=== PATIENT | female | born 1975 | race Caucasian/White ===

== ENCOUNTER 2019-12-24 12:28 | Observation (INO) ==
[2019-12-24 14:16] LABS: Alanine Aminotransferase 26 U/L (12-78); Aspartate Aminotransferase 20 U/L (15-37)
[2019-12-24 14:32] LABS: Basophils # (auto) 0.02 K/uL (0-0.2); Basophils % (auto) 0.3 %; Eosinophils # (auto) 0.03 K/uL (0-0.5); Eosinophils % (auto) 0.4 %; Hematocrit (blood only) 32.2 % (37-47); Immature Granulocytes # (auto) 0.02 K/uL (0.00-0.02); Immature Granulocytes % (auto) 0.3 %; Lymphocytes % (auto) 14.5 %; Mean Corpuscular Hemoglobin 25.8 pg (25-34); Mean Platelet Volume 10.3 fL (7.4-10.4); Monocytes # (auto) 0.42 K/uL (0.11-0.59); Monocytes % (auto) 5.5 %; Neutrophils # (auto) 6.02 K/uL (1.4-6.5); Platelet Count 329 K/uL (130-400); RDW Standard Deviation 45.7 fL (36.4-46.3); Red Blood Count 3.88 M/uL (4.2-5.4); White Blood Count 7.61 K/uL (4.8-10.8)
[2019-12-24 14:37] LABS: Mean Corpuscular Hgb Conc 31.1 g/dL (32-36)
[2019-12-24 14:48] LABS: Protein Creatinine Ratio Urine 0.2 (0-0.2); Total Protein Urine Random 47.5 mg/dl (0-11.9)
[2019-12-24] MEDS ORDERED: NIFEdipine 10 MG CAP PO STA (15:11)
[2019-12-24 15:20] LABS: Creatinine Clr Calc Pharmacy 151.6 ml/min; Est GFR (African American) 123.6; Est GFR (Non-African American) 106.7
--- NOTE | 2019-12-24 16:22 | History & Physical Report ---
Date of Service December 24, 2019 Assessment & Plan (1) Pre-eclampsia during in third trimester, antepartum: IUP at 34 6/7 weeks with preclampsia with severe features although all PIH labs are WNL except for creatinine/protein ratio is 0.2. will give 10mg Nifedipine now because BP's are persistently high. will also work on transferring to [facility] because of late premature gestation. breech presentation on ultrasound. Present on Admission?: Yes History of Present Illness Primary Care Provider: NO PCP Patient is a 44 yo white female EDC [birth year] who presents at 34 6/7 weeks for a routine OB visit. BP was 150/102 and repeat BP wsa 140/90 with 1+ proteinuria. She has no PIH symptoms except for increased swelling in her legs for the past 4 days. On arrival in L&D , BP's have continued to be elevated with a range of 185-166/95-102. 1+ proteinuria as well. She has not been seen in the office since 24 weeks because of concerns about chelsea COVID-19 and because her other pregnancies had been uncomplicated. GBS status is unknown. Blood type is O positive. echo was WNL. anatomy scan was also complete & normal. She has no history of hypertension or gestational diabetes with her other pregnancies. 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 Required: No Beliefs That Will Affect Care: None marital status: Single marital status details: REBECA Gray (45) [phone] Current Living Situation: Spouse Current Living Situation Comment: Lives at home with and children Other Information That Helps Us Care for You: No Smoking Status: Never smoker Do You Dip or Chew Tobacco: No ; Second Hand Exposure: No ; Tobacco Cessation Education Requested by Patient: No Hx Alcohol Use: No Hx Substance Use: No Review of Systems All systems reviewed & are unremarkable except as noted in HPI & below Physical Exam Constitutional: WD/WN, vitals as above Respiratory: normal respiratory effort, lungs clear to auscultation Cardiovascular: RRR, no murmur, no edema Gastrointestinal (Abdomen): normal bowel sounds, soft, nontender, no hepatosplenomegaly Percussion/Palpation: abdomen nontender (no epigastric or RUQ tenderness) Psychiatric: A+Ox3, euthymic affect Genitourinary: OB Exam Abdomen: + breech (double footling) Manual OB Exam: + cervical dilation fingertip, + cervical effacement 50% and + station high OB Exam Monitor Tracing: + external FHT monitor used, + external uterine monitor used, + category I and + normal FHT variability Results & Data ([facility]) Vital Signs (Past 12 Hours) Vital Signs Temp Pulse Resp BP 12/24/19 15:55 90 152/75 H 12/24/19 15:40 86 166/91 H 12/24/19 15:25 80 166/89 H 12/24/19 15:10 73 181/98 H 12/24/19 14:16 78 185/97 H 12/24/19 13:52 83 187/95 H 12/24/19 13:49 87 195/117 H 12/24/19 13:36 78 163/99 H 12/24/19 13:24 98.4 F 79 20 174/102 H 12/24/19 13:08 85 172/86 H 12/24/19 13:00 81 186/108 H 12/24/19 12:55 77 185/107 H Coding Level of Care Code 37653 Office/Outpt Visit, New Diagnoses Pre-eclampsia during in third trimester, antepartum O14.93
--- NOTE | 2019-12-24 17:31 | Obstetrical Progress Note ---
Date of Service December 24, 2019 Assessment & Plan (1) Pre-eclampsia during in third trimester, antepartum: recheck PIH labs at 1930 start 24 hour urine collection fpr creatinine clearance & total protein. Obtain COVID 19 swab continue to monitor BP. Subjective discussed patient's case with Dr. Tim at [facility] who saw Joelle at 11 weeks this and was noted to have a BP of 140/90 so he considers her an untreated chronic hypertensive not gestational HTN especially since all of her labs have been normal. Her BP has been in the normal range since 10 mg Nifedipine at 1525. Current BP is 155/85. will continue to monitor her BP and do serial PIH labs ,may need to be started on Labetalol for maintenance of BP. IF BP is difficult to control , will transfer to [facility] for further evaluation & treatment. Results & Data ([facility]) Vital Signs (Past 12 Hours) Vital Signs Temp Pulse Resp BP 12/24/19 17:10 84 155/92 H 12/24/19 16:55 83 147/81 H 12/24/19 16:40 86 147/87 H 12/24/19 16:25 81 146/83 H 12/24/19 16:10 80 149/78 H 12/24/19 15:55 90 152/75 H 12/24/19 15:40 86 166/91 H 12/24/19 15:25 80 166/89 H 12/24/19 15:10 73 181/98 H 12/24/19 14:16 78 185/97 H 12/24/19 13:52 83 187/95 H 12/24/19 13:49 87 195/117 H 12/24/19 13:36 78 163/99 H 12/24/19 13:24 98.4 F 79 20 174/102 H 12/24/19 13:08 85 172/86 H 12/24/19 13:00 81 186/108 H 12/24/19 12:55 77 185/107 H PG Care Time/CCT Total # of Minutes Spent Total Time Spent with Patient: Total time spent is greater than 50% in coordination of care (as documented) at patient's floor/unit and/or counseling patient: Coding Level of Care Code 06134 Subseq Obs Care Lvl 2 Diagnoses Pre-eclampsia during in third trimester, antepartum O14.93
[2019-12-24] MEDS ORDERED: BETAMETH SOD PHOS/ACETATE IA 6 MG/ML IM STA (18:49)
[2019-12-24 19:36] LABS: Basophils # (auto) 0.02 K/uL (0-0.2); Basophils % (auto) 0.2 %; Eosinophils # (auto) 0.06 K/uL (0-0.5); Eosinophils % (auto) 0.6 %; Hematocrit (blood only) 31.5 % (37-47); Hemoglobin 9.9 g/dL (12.0-16.0); Immature Granulocytes # (auto) 0.03 K/uL (0.00-0.02); Immature Granulocytes % (auto) 0.3 %; Lymphocytes # (auto) 1.77 K/uL (1.2-3.4); Lymphocytes % (auto) 18.1 %; Mean Corpuscular Volume 82.7 fL (80-100); Mean Platelet Volume 10.2 fL (7.4-10.4); Monocytes # (auto) 0.51 K/uL (0.11-0.59); Monocytes % (auto) 5.2 %; Neutrophils % (auto) 75.6 %; Platelet Count 295 K/uL (130-400); RDW Standard Deviation 45.1 fL (36.4-46.3); Red Blood Count 3.81 M/uL (4.2-5.4); White Blood Count 9.79 K/uL (4.8-10.8)
[2019-12-24 19:45] LABS: Mean Corpuscular Hgb Conc 31.4 g/dL (32-36)
[2019-12-24 19:53] LABS: Creatinine Clr Calc Pharmacy 188.8 ml/min; Est GFR (African American) 132.9; Est GFR (Non-African American) 114.7
[2019-12-24] MEDS: LABETALOL HCL 200 MG TAB PO SCH (20:03)
--- NOTE | 2019-12-24 21:49 | Obstetrical Progress Note ---
Date of Service December 24, 2019 Assessment & Plan Admission and Anticipated Discharge Date Admission Date: continue serial PIH labs & 24 hr urine collection celestone 12 mg given continue labetalol 200mg bid Subjective no PIH symptoms, BP now 116/61 after 200mg labetalol 90 minutes ago. PIH labs still stable although platelets are 295,000 which is down from 329,000. Hgb is also down from 10.9 to 9.9 so this may be a dilutional affect will repeat labs at 0130 and continue 24 hour urine collection. Results & Data ([facility]) Vital Signs (Past 12 Hours) Vital Signs Temp Pulse Resp BP 12/24/19 21:23 68 116/61 12/24/19 20:44 79 133/70 12/24/19 20:01 90 144/96 H 12/24/19 20:00 97.9 F 18 12/24/19 19:25 81 145/86 H 12/24/19 19:10 69 141/79 H 12/24/19 18:55 73 149/70 H 12/24/19 18:40 82 150/91 H 12/24/19 18:26 82 156/85 H 12/24/19 17:56 87 162/88 H 12/24/19 17:40 86 164/111 H 12/24/19 17:25 85 155/85 H 12/24/19 17:10 84 155/92 H 12/24/19 17:00 98.6 F 12/24/19 16:55 83 147/81 H 12/24/19 16:40 86 147/87 H 12/24/19 16:25 81 146/83 H 12/24/19 16:10 80 149/78 H 12/24/19 15:55 90 152/75 H 12/24/19 15:40 86 166/91 H 12/24/19 15:25 80 166/89 H 12/24/19 15:10 73 181/98 H 12/24/19 14:16 78 185/97 H 12/24/19 13:52 83 187/95 H 12/24/19 13:49 87 195/117 H 12/24/19 13:36 78 163/99 H 12/24/19 13:24 98.4 F 79 20 174/102 H 12/24/19 13:08 85 172/86 H 12/24/19 13:00 81 186/108 H 12/24/19 12:55 77 185/107 H PG Care Time/CCT Total # of Minutes Spent Total Time Spent with Patient: Total time spent is greater than 50% in coordination of care (as documented) at patient's floor/unit and/or counseling patient: Coding Level of Care Code 43357 Subseq Obs Care Lvl 2
[2019-12-25 01:47] LABS: Basophils # (auto) 0.01 K/uL (0-0.2); Basophils % (auto) 0.1 %; Hematocrit (blood only) 31.3 % (37-47); Hemoglobin 9.8 g/dL (12.0-16.0); Immature Granulocytes # (auto) 0.04 K/uL (0.00-0.02); Immature Granulocytes % (auto) 0.4 %; Lymphocytes # (auto) 0.61 K/uL (1.2-3.4); Lymphocytes % (auto) 6.3 %; Monocytes # (auto) 0.08 K/uL (0.11-0.59); Monocytes % (auto) 0.8 %; Neutrophils # (auto) 8.94 K/uL (1.4-6.5); Neutrophils % (auto) 92.4 %; Platelet Count 304 K/uL (130-400); RDW Coefficient of Variation 14.9 % (11.5-14.5); Red Blood Count 3.77 M/uL (4.2-5.4); White Blood Count 9.68 K/uL (4.8-10.8)
[2019-12-25 02:04] LABS: Creatinine Clr Calc Pharmacy 147.1 ml/min; Est GFR (African American) 122.4; Est GFR (Non-African American) 105.6
[2019-12-25 02:05] LABS: Mean Corpuscular Hgb Conc 31.3 g/dL (32-36)
[2019-12-25 07:24] LABS: Basophils # (auto) 0.01 K/uL (0-0.2); Basophils % (auto) 0.1 %; Hematocrit (blood only) 31.4 % (37-47); Hemoglobin 9.8 g/dL (12.0-16.0); Immature Granulocytes # (auto) 0.04 K/uL (0.00-0.02); Immature Granulocytes % (auto) 0.5 %; Lymphocytes # (auto) 0.69 K/uL (1.2-3.4); Mean Corpuscular Hemoglobin 25.9 pg (25-34); Mean Corpuscular Volume 82.8 fL (80-100); Mean Platelet Volume 9.8 fL (7.4-10.4); Monocytes % (auto) 1.2 %; Neutrophils # (auto) 7.81 K/uL (1.4-6.5); Neutrophils % (auto) 90.2 %; Platelet Count 292 K/uL (130-400); RDW Coefficient of Variation 14.9 % (11.5-14.5); RDW Standard Deviation 44.4 fL (36.4-46.3); Red Blood Count 3.79 M/uL (4.2-5.4); White Blood Count 8.65 K/uL (4.8-10.8)
[2019-12-25 07:51] LABS: Mean Corpuscular Hgb Conc 31.2 g/dL (32-36)
[2019-12-25 07:57] LABS: Creatinine Clr Calc Pharmacy 172.5 ml/min; Est GFR (Non-African American) 111.3
[2019-12-25] MEDS: LABETALOL HCL 200 MG TAB PO SCH ×2 (08:52→20:14)
--- NOTE | 2019-12-25 09:24 | Obstetrical Progress Note ---
Date of Service December 25, 2019 Assessment & Plan (1) Chronic hypertension with superimposed preeclampsia: BP's have continued to be mildly elevated but not requiring any rescue antihypertensives. labs continue to be normal except for anemia. She is already taking a vitamin but will add iron daily will do growth scan here because availability at the office is limited. continue 24 hour urine collection which will be done at 1830 danuta will get second celestone dose this evening as well continue current labetalol dose 200mg bid Admission and Anticipated Discharge Date Admission Date: December 25, 2019 Subjective no PIH symptoms this morning. some heartburn but this is normal for her first thing in the morning. no lightheadedness or dizziness. Review of Systems Review of Systems: All systems reviewed & are unremarkable except as noted in HPI & below Physical Exam Constitutional: WD/WN, vitals as above Gastrointestinal (Abdomen): normal bowel sounds, soft, nontender, no hepatosplenomegaly Percussion/Palpation: abdomen nontender Psychiatric: A+Ox3, euthymic affect Genitourinary: OB Exam Monitor Tracing: + external FHT monitor used, + external uterine monitor used, + category I and + normal FHT variability Results & Data ([facility]) Vital Signs (Past 12 Hours) Vital Signs Temp Pulse Resp BP 12/25/19 08:54 82 163/86 H 12/25/19 07:53 72 148/83 H 12/25/19 07:18 73 179/87 H 12/25/19 07:15 98.4 F 20 12/25/19 06:29 80 131/70 12/25/19 05:06 74 115/72 12/25/19 04:06 97.5 F L 76 16 144/77 H 12/25/19 02:50 68 147/83 H 12/25/19 01:39 74 157/80 H 12/25/19 00:49 74 122/64 12/24/19 23:43 97.9 F 73 16 142/76 H 12/24/19 23:23 76 146/76 H 12/24/19 22:53 77 154/93 H 12/24/19 22:23 75 134/68 12/24/19 21:53 75 132/65 12/24/19 21:23 68 116/61 PG Care Time/CCT Total # of Minutes Spent Total Time Spent with Patient: Total time spent is greater than 50% in coordination of care (as documented) at patient's floor/unit and/or counseling patient: Coding Level of Care Code 34212 Subseq Hosp Care Lvl 2 Diagnoses Chronic hypertension with superimposed preeclampsia O11.9
--- NOTE | 2019-12-25 10:40 | Ultrasound Report ---
OBSTETRICAL ULTRASOUND CLINICAL HISTORY: growth scan COMPARISON STUDY: 09/16/2019 FINDINGS: A single live fetus in cephalic presentation was identified. The heart rate was 138. The anatomic fluid index was 10.5. The placenta was left fundal. The BPD measured 81 mm corresponding to an estimated there is potential age of 32 weeks and 2 days, t he head circumference measured 298 mm corresponding to an estimated postmenstrual age of 32 weeks 6 d ays, the abdominal circumference measured 324 mm corresponding to an estimated postmenstrual age of 3 6 weeks 2 days, the femur measured 17 mm corresponding to an estimated postmenstrual age of 36 weeks and 0 days. The estimated postmenstrual age is 34 weeks 1 day +/- 1 week. The estimated weight is 2700 +/- 400 g. A detailed anatomic study was not performed. IMPRESSION: 1. Single live fetus in cephalic presentation. 2. The estimated postmenstrual age is 34 weeks 1 day +/- 1 week 3. The estimated weight is 2700 +/- 400 g ACT 112: Negative or not required by law. Electronically signed by: Mic Casas M.D. 12/25/2019 10:39 AM
[2019-12-25 13:18] LABS: Hematocrit (blood only) 29.8 % (37-47); Hemoglobin 9.5 g/dL (12.0-16.0); Immature Granulocytes # (auto) 0.03 K/uL (0.00-0.02); Immature Granulocytes % (auto) 0.3 %; Lymphocytes # (auto) 0.69 K/uL (1.2-3.4); Lymphocytes % (auto) 7.3 %; Mean Corpuscular Hemoglobin 26.2 pg (25-34); Mean Corpuscular Volume 82.1 fL (80-100); Mean Platelet Volume 9.7 fL (7.4-10.4); Monocytes # (auto) 0.46 K/uL (0.11-0.59); Monocytes % (auto) 4.9 %; Neutrophils # (auto) 8.22 K/uL (1.4-6.5); Neutrophils % (auto) 87.5 %; Platelet Count 290 K/uL (130-400); RDW Coefficient of Variation 14.8 % (11.5-14.5); RDW Standard Deviation 44.3 fL (36.4-46.3); Red Blood Count 3.63 M/uL (4.2-5.4)
[2019-12-25 13:34] LABS: Creatinine Clr Calc Pharmacy 140.9 ml/min; Est GFR (African American) 119.2; Est GFR (Non-African American) 102.9
[2019-12-25 13:41] LABS: Mean Corpuscular Hgb Conc 31.9 g/dL (32-36)
[2019-12-25 19:01] LABS: Patient Weight 130.6 kg
[2019-12-25] MEDS ORDERED: BETAMETH SOD PHOS/ACETATE IA 6 MG/ML IM SCH (19:45)
[2019-12-25 20:07] LABS: Creatinine Clearance Urine 66.5 ml/min (88-128)
--- NOTE | 2019-12-25 20:30 | Discharge Summary ---
Date of Service December 25, 2019 Hospital Course (1) Chronic hypertension with superimposed preeclampsia: BP's have continued to be mildly elevated but not requiring any rescue antihypertensives. labs continue to be normal except for anemia. She is already taking a vitamin but will add iron daily will do growth scan here because availability at the office is limited. continue 24 hour urine collection which will be done at 1830 tonight will get second celestone dose this evening as well continue current labetalol dose 200mg bid Coding Level of Care Code None Diagnoses Chronic hypertension with superimposed preeclampsia O11.9
== END 2019-12-25 20:05 | disposition home or self-care (01) ==
LOC: OPB 12:28 → 4S1 12:28

== ENCOUNTER 2019-12-28 17:24 | Inpatient (IN) ==
[2019-12-28] MEDS ORDERED: MAG SULFATE 6GM BOLUS FROM BAG IV ONE (17:30)
[2019-12-28] MEDS ORDERED: HydrALAZINE HCL 20 MG/ML VIAL IV STA (17:32)
--- NOTE | 2019-12-28 17:41 | History & Physical Report ---
Date of Service December 28, 2019 Assessment & Plan (1) Chronic hypertension with superimposed preeclampsia: (2) Pre-eclampsia during in third trimester, antepartum: (3) Advanced maternal age (AMA) in : (4) Obesity affecting , antepartum: History of Present Illness Primary Care Provider: NO PCP 44yo at 35w3d with limited compliance with care, transfer to our practice in second trimester, obesity, cHTN on Labetalol 200mg PO, now with superimposed severe preeclampsia. Seen in office by Dr. Yung today and was found to have 2+ proteinuria and BP 162/104. Patient with c/o heartburn today. Denies LOAIZA, RUQ pain. Has stable edema that is pitting. No vision changes. Last dose labetalol this morning. She expresses anger about her diagnosis here when she is told that I feel she has severe preeclampsia, and says she was told she was only coming here for monitoring. Explained at length the severe preeclampsia diagnosis is being confirmed by a variety of labs and monitoring but that it is my presumed diagnosis and would be an indication for transfer to higher level of care and for delivery. She expresses that she is "about to walk out of here and go somewhere else." Counseled that her condition is serious and we certainly hope she will remain and receive the necessary care. Allergies Allergy/AdvReac Type Severity Reaction Status Date / Time No Known Allergies Allergy Verified 12/28/19 16:23 Home Medications Home Medications Medication Instructions Recorded Confirmed Type prenat.vits,ilana,[id number] 1 tab PO DAILY 08/06/19 12/28/19 History labetalol 200 mg PO BID #60 tab 12/25/19 12/28/19 Rx Patient History Family History Mother Heart disease Rheumatic fever Social History Smoking Status: Never smoker Second Hand Exposure: No; Hx Alcohol Use: No Hx Substance Use: No Preferred Language: Faroese Communication Ability: Effective Rock Singer Required: No Beliefs That Will Affect Care: None marital status: Single marital status details: REBECA Gray (45) [phone] Current Living Situation: Spouse Current Living Situation Comment: Lives at home with and children Physical Exam Physical Exam: BP taken by MD with patient lying in bed, 180/115. Patient has sat 98% and pulse in 80s at that time as well. Due to overwhelming census on L&D the patient was initially placed in room 431 where I went to find her and took her vitals myself. She was immediately moved at my request to LD2 for monitoring and establishment of mgmt for severe preeclampsia. Constitutional: WD/WN, vitals as above Eyes: PERRL, conjunctivae normal, anicteric sclerae ENMT: external ear and nose normal, oropharynx normal Neck: supple Respiratory: normal respiratory effort and able to speak in complete s entences; no respiratory distress Cardiovascular: Rate/Rhythm: regular rate and regular rhythm Extremities: + pedal edema (pitting bilateral to knees) Gastrointestinal (Abdomen): Gravid / AGA, nontender Musculoskeletal: no cyanosis or clubbing, extremities motor strength 5/5 Skin: no rashes, warm and dry Neurologic: patellar DTR's 2+ bilat, sensation intact Psychiatric: A+Ox3, euthymic affect Lymphatic: no cervical or axillary lymphadenopathy Code Status & VTE Plan VTE Prophylaxis Plan VTE Prophylaxis will be ordered: Yes Monitoring External Monitor FHT high 140s when first auscultated. Challenging to trace due to maternal habitus. Rheems just applied, no pattern apparent yet. Supervising Physician Co-Signing Physician Notes Labs, serial vitals. Given her BP will begin with IV hydralazine if IV access established right away, or will have to use PO nifedipine if unable to get rapid access. Magnesium 6g bolus for neuroprotection as well as preeclampsia, and 2g maintenance for severe preeclampsia. She did receive BMTZ x2 last week when she was here for very similar condition. Coding Level of Care Code None Diagnoses Chronic hypertension with superimposed preeclampsia O11.9 Pre-eclampsia during in third trimester, antepartum O14.93 Advanced maternal age (AMA) in Obesity affecting , antepartum O99.210
[2019-12-28] MEDS ORDERED: LACTATED RINGER'S 1,000 ML IV SCH (17:45)
[2019-12-28] MEDS ORDERED: NIFEdipine 10 MG CAP PO STA (17:56)
[2019-12-28] MEDS ORDERED: NIFEdipine 10 MG CAP ONE (17:57)
[2019-12-28] MEDS ORDERED: MAGNESIUM SULFATE / WTR 40 GM/1,000 ML BAG IV SCH (18:00)
[2019-12-28 18:01] LABS: Hematocrit (blood only) 32.9 % (37-47); Hemoglobin 10.2 g/dL (12.0-16.0); Mean Corpuscular Volume 83.7 fL (80-100); Mean Platelet Volume 10.7 fL (7.4-10.4); Nucleated RBC # (auto) 0.06 K/uL (0-0); Nucleated RBC % (auto) 0.6 %; Platelet Count 364 K/uL (130-400); RDW Coefficient of Variation 15.2 % (11.5-14.5); RDW Standard Deviation 46.5 fL (36.4-46.3); Red Blood Count 3.93 M/uL (4.2-5.4); White Blood Count 10.03 K/uL (4.8-10.8)
[2019-12-28 18:18] LABS: INR 0.9 (0.9-1.1); Partial Thromboplastin Ratio 0.7; Partial Thromboplastin Time < 20.0 Seconds (21.0-31.0); Prothrombin Time 9.9 Seconds (9.0-12.0)
[2019-12-28 18:19] LABS: Alanine Aminotransferase 31 U/L (12-78); Albumin Level 2.4 gm/dl (3.4-5.0); Aspartate Aminotransferase 21 U/L (15-37); Bilirubin Direct < 0.1 mg/dl (0-0.2); Blood Urea Nitrogen 10 mg/dl (7-18); Calcium 8.1 mg/dl (8.5-10.1); Carbon Dioxide 25 mmol/L (21-32); Chloride 111 mmol/L (98-107); Est GFR (African American) 117.2; Est GFR (Non-African American) 101.1; Glucose 84 mg/dl (70-99); Potassium 3.9 mmol/L (3.5-5.1); Sodium 144 mmol/L (136-145); Uric Acid 4.7 mg/dl (2.6-7.2)
[2019-12-28 18:21] LABS: Albumin Globulin Ratio 0.5 (0.9-2); Alkaline Phosphatase 102 U/L (45-117); Bilirubin,Total 0.3 mg/dl (0.2-1); Globulin 4.4 gm/dl (2.5-4.0); Total Protein 6.8 gm/dl (6.4-8.2)
[2019-12-28] MEDS ORDERED: LIDOCAINE 2% JELLY 5 ML TUBE ONE (18:52)
--- NOTE | 2019-12-28 19:02 | Labor Progress Brief Note ---
Date of Service December 28, 2019 Subjective Patient admits she feels better now that she has had nifedipine and magnesium bolus, and BP is down from max of 210/108 to 148/83. Still good FM, no contractions, no LOF, no VB. No LOAIZA, no RUQ or epigastric pain currently. Assessment & Plan (1) Chronic hypertension with superimposed preeclampsia: Started on labetalol 200mg PO four days ago by [employer] consultant at [facility] who felt this patient had untreated cHTN. No improvement on BP between 12/23 and 12/27 per our chart. (2) Pre-eclampsia during in third trimester, antepartum: Severe features with "heartburn" mid-epigastric pain and severe range pressures with 2+ protein dip, spot pr/cr ratio pending. Mag bolus of 6g given and 2g maintenance running. Received BMTZ 3 and 4 days ago. Aware that indication is for delivery. Has history of 4x prior . Patient and FOB counseled and agree to transfer to higher level of care. (3) Obesity affecting , antepartum: Severe, limits monitoring ability. Not so severe as to preclude air transfer per [facility] transfer center. (4) Advanced maternal age (AMA) in : 44yo elderly . Last prior 12 years ago. Admission and Anticipated Discharge Date Admission Date: December 28, 2019 Results & Data ([facility]) Vital Signs (Past 12 Hours) Vital Signs Pulse BP Pulse Ox 12/28/19 18:52 93 H 99 12/28/19 18:51 90 161/81 H 12/28/19 18:47 89 99 12/28/19 18:42 87 97 12/28/19 18:37 91 H 96 12/28/19 18:36 85 158/74 H 12/28/19 18:32 88 97 12/28/19 18:27 90 97 12/28/19 18:22 88 99 12/28/19 18:18 90 148/83 H 12/28/19 18:17 87 98 12/28/19 18:13 80 161/83 H 12/28/19 18:12 80 99 12/28/19 18:08 77 170/84 H 12/28/19 18:07 74 99 12/28/19 18:03 75 182/91 H 12/28/19 18:02 76 100 12/28/19 18:01 73 174/83 H 12/28/19 17:59 83 188/88 H 12/28/19 17:57 100 H 100 12/28/19 17:52 101 H 210/108 H 99 Laboratory Results Laboratory Results - last 24 hr 12/28/19 12/28/19 12/28/19 17:48 17:48 17:48 WBC 10.03 RBC 3.93 L Hgb 10.2 L Hct 32.9 L MCV 83.7 MCH 26.0 MCHC 31.0 L RDW Std Deviation 46.5 H RDW Coeff of [place] 15.2 H Plt Count 364 MPV 10.7 H Absolute Nucleated RBC 0.06 H Nucleated RBC % (auto) 0.6 PT 9.9 INR 0.9 APTT < 20.0 L PTT Ratio 0.7 Sodium 144 Potassium 3.9 Chloride 111 H Carbon Dioxide 25 Anion Gap 8.0 BUN 10 Creatinine 0.72 Est Cr Clr Drug Dosing Not Reportable Est GFR ( Amer) 117.2 Est GFR (Non-Af Amer) 101.1 BUN/Creatinine Ratio 14.0 Glucose 84 Uric Acid 4.7 Calcium 8.1 L Total Bilirubin 0.3 Direct Bilirubin < 0.1 AST 21 ALT 31 Alkaline Phosphatase 102 Lactate Dehydrogenase Total Protein 6.8 Albumin 2.4 L Globulin 4.4 H Albumin/Globulin Ratio 0.5 L 12/28/19 17:48 WBC RBC Hgb Hct MCV MCH MCHC RDW Std Deviation RDW Coeff of [place] Plt Count MPV Absolute Nucleated RBC Nucleated RBC % (auto) PT INR APTT PTT Ratio Sodium Potassium Chloride Carbon Dioxide Anion Gap BUN Creatinine Est Cr Clr Drug Dosing Est GFR ( Amer) Est GFR (Non-Af Amer) BUN/Creatinine Ratio Glucose Uric Acid Calcium Total Bilirubin Direct Bilirubin AST ALT Alkaline Phosphatase Lactate Dehydrogenase 269 H Total Protein Albumin Globulin Albumin/Globulin Ratio Coding Level of Care Code None Diagnoses Chronic hypertension with superimposed preeclampsia O11.9 Pre-eclampsia during in third trimester, antepartum O14.93 Obesity affecting , antepartum O99.210 Advanced maternal age (AMA) in
--- NOTE | 2019-12-30 10:04 | Discharge Summary ---
Date of Service December 30, 2019 Admission HPI Per Admitting Provider 44yo at 35w3d with limited compliance with care, transfer to our practice in second trimester, obesity, cHTN on Labetalol 200mg PO, now with superimposed severe preeclampsia. Seen in office by Dr. Yung today and was found to have 2+ proteinuria and BP 162/104. Patient with c/o heartburn today. Denies LOAIZA, RUQ pain. Has stable edema that is pitting. No vision changes. Last dose labetalol this morning. Discharge Data Consultations 12/28/19 17:32 Consult Anesthesiology Stat Hospital Course (1) Pre-eclampsia during in third trimester, antepartum: Patient admitted with elevated BP in severe range, 2+ proteinuria, and diagnosis of severe preeclampsia. GA prior to 36 weeks. Patient did receive BMTZ previously. She was provided with neuroprotective-dose magnesium bolus and ongoing 2g/hr infusion, and discussed with [place] practice consultant conduit mechanic for the [facility] service (who was a podiatric assistant as the [facility] service does not accept / admit transfers). They recommended transfer to [facility] for delivery of mom and for NICU- level care. Air transport was arranged and patient was discharged via helicopter in stable condition. Coding Level of Care Code None Diagnoses Pre-eclampsia during in third trimester, antepartum O14.93
== END 2019-12-28 19:55 | disposition short-term general hospital (02) | DRG 832 ==
LOC: 4S2 17:24 → OPB 17:24 → 4S2 17:32 → 4S1 17:40